=== PATIENT | female | born 1975 | race Caucasian/White ===

== ENCOUNTER 2017-11-07 21:38 | Emergency (ER) | payer MEDICARE, OTHER ==
[~2017-11-07] VITALS: Ht 180.3 cm; Wt 99.8 kg
[2017-11-07] MEDS ORDERED: NEURONTIN100 MG PO (21:53)
[2017-11-07] MEDS ORDERED: MOBIC15 MG PO (21:54)
[2017-11-07] MEDS ORDERED: [UNRECOGNIZED DRUG - OTHER] (21:56)
[2017-11-07] MEDS ORDERED: SYNTHROID25 MCG PO (21:57)
[2017-11-07] MEDS ORDERED: PENICILLIN V P500 MG PO (21:58)
== END 2017-11-07 22:14 | disposition home or self-care (01) ==
LOC: ED 21:38
DX: K02.9 Dental caries, unspecified (principal); Z87.891 Personal history of nicotine dependence; Z88.8 Allergy status to other drugs, medicaments and biological substances; Z88.5 Allergy status to narcotic agent; Z79.899 Other long term (current) drug therapy
CPT/HCPCS: 99282